=== PATIENT | male | born 1950 | race Caucasian/White ===

== ENCOUNTER 2023-03-24 09:20 | Emergency (ER) | payer MEDICARE ==
[~2023-03-24] VITALS: Ht 180.3 cm; Wt 97.4 kg
[~2023-03-24 09:20] MED LIST: CINNAMON500 MG PO; LUTEIN10 MG PO; MULTIVITAMINS1 EAC7 PO; NORCO 5-325 TA1 EACH PO; SAW PALMETTO500 MG PO; VITAMIN C1000 MG PO
[2023-03-24] MEDS ORDERED: FINASTERIDE5 MG PO (09:33)
[2023-03-24] MEDS ORDERED: ATORVASTATIN CA40 MG PO (09:33)
[2023-03-24] MEDS ORDERED: FLOMAX0.4 MG PO (09:53)
[2023-03-24 10:58] VITALS: BP 153/89
== END 2023-03-24 10:58 | disposition home or self-care (01) ==
LOC: ED 09:20
DX: R33.9 Retention of urine, unspecified (principal); Z79.899 Other long term (current) drug therapy
CPT/HCPCS: 81001